=== PATIENT | female | born 1990 | race Caucasian/White ===

== ENCOUNTER 2017-09-27 05:45 | Inpatient (IN) ==
--- OUTSIDE RECORDS SUMMARY | 2017-09-27 05:56 | External Medical Summary | Continuity of Care Document ---
:1990 Author Organization [facility] Address [address] [place], [place] [id number] Phone Care Team Providers Name Role Phone Constanza Flowers MD Unavailable Unavailable Allergies, Adverse Reactions, Alerts Substance Reaction Severity Status No Known Drug Allergies Unknown Active Medications Medication Instructions Dosage Effective Dates Status Comments (start - stop) Terazol 3 0.8 % insert 1 Not Available - Active vaginal cream applicatorful by vaginal route every day at bedtime 28 mg take 1 by Oral Not Available - Active PNV that iron-800 mcg route every day insurance will tablet cover Problems Condition Effective Dates (start - stop) Clinical Status Follow-Up, Routine - Follow-Up, Routine - Previous Low Transverse - Encounter for suprvsn of normal - , third trimester 35 weeks gestation of - Irregular Menses Previous Low Transverse - Encounter for suprvsn of normal - , third trimester 32 weeks gestation of - Primary dysmenorrhea Previous Low Transverse - Encounter for suprvsn of normal - , second trimester 16 weeks gestation of - Previous Low Transverse - Encounter for suprvsn of normal - , second trimester 22 weeks gestation of - Previous Low Transverse - Encounter for suprvsn of normal - , third trimester 37 weeks gestation of - Previous Low Transverse - Encounter for suprvsn of normal - , third trimester 36 weeks gestation of - Previous Low Transverse - Pap Smear Screening, Cervix - Encounter for suprvsn of normal - , first trimester 8 weeks gestation of - Previous Low Transverse - Encounter for suprvsn of normal - , third trimester 28 weeks gestation of - Previous Low Transverse - Encounter for suprvsn of normal - , first trimester 12 weeks gestation of - Previous Low Transverse - Encounter for suprvsn of normal - , third trimester 30 weeks gestation of - Previous Low Transverse - Encounter for suprvsn of normal - , second trimester 26 weeks gestation of - Previous Low Transverse - Encounter for suprvsn of normal - , second trimester 18 weeks gestation of - Previous Low Transverse - Matern care for oth or susp poor fetl - grth, 2nd tri, unsp 18 weeks gestation of - Unspecified abdominal pain - Unspecified abdominal pain Screening Cervical Pap Smear Active Procedures Procedure Date OB Visit No Charge - 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 Results Test Name Date and Time Measure Units Reference Range Abnormal Flag Comments Panel Description: STREPTOCOCCUS, GROUP B CULTURE STREPTOCOCCUS, GROUP SEE NOTE STREPTOCOCCUS, GROUP B CULTURE B CULTURE 16:40:00 MICRO NUMBER: [id number] TEST STATUS: FINAL SPECIMEN SOURCE: VAGINAL/ANORECTAL SPECIMEN QUALITY: ADEQUATE RESULT: No group B Streptococcus isolatedREPORT COMMENT:FASTING:UNKNOWNTest performed at [facility] [id number] [place] [address]Yyaxyszv: SINDHU ORNELAS DO,MPH Advance Directives Directive Yes / No Effective Date File Name Unknown Encounters Encounter Practice Location Reason(s) Diagnoses Date Provider Care Team Description For Visit [facility] Previous Low Nov-1 Georgie In Womens Transverse 6-201 Lilli. Blanca ZENG C-SectionEncount 7 700 PO Box er for suprvsn Medical 1522, of normal [facility], , third Mikel Lopez, [id number] 120, [id number], weeks gestation [place], tel:[phone] , [place]. tel: [phone] [facility] Previous Low Nov-0 Georgie In Womens Transverse 9-201 Lilli. Blanca ZENG C-SectionEncount 7 700 PO Box er for suprvsn Medical 1522, of normal [facility], , third Mikel Lopez, [id number] 120, [id number], weeks gestation [place], tel:[phone] , [place]. tel: [phone] Lien [place] Previous Low Oct-3 Georgie In Womens Transverse 0-201 Lilli. Blanca ZENG C-SectionEncount 7 700 PO Box er for suprvsn Medical 1522, of normal [facility], , third Mikel Lopez, [id number] 120, [id number], weeks gestation [place], tel:[phone] , [place]. tel: [phone] [facility] Previous Low Oct-1 Georgie Referring In Womens Transverse 2-201 Lilli. Provider: Tarun Smith-SectionEncount 7 700 Lilli PO Box er for suprn Medical Georgie L, 1522, of normal Center [address] [place] [address], , third Mikel Lopez, [id number] 120, Center [id number], weeks gestation Mikel [place] 120, [place] of [place] RAMACHANDRAN, tel:[phone] [place], , [place]. [id number]. tel: tel: [phone] [facility] Previous Low Sep-2 Georgie In Womens Transverse 8-201 Lilli. Blanca ZENG C-SectionEncount 7 700 PO Box er for suprvsn Medical 1522, of normal [facility], , third Mikel Lopez, [id number] 120, [id number], weeks gestation [place], tel:[phone] , [place]. tel: [phone] [facility] Previous Low Sep-1 Georgie In Womens Transverse 4-201 Lilli. Blanca ZENG C-SectionEncount 7 700 PO Box er for [facility] Medical 1522, of normal [facility], , third Mikel Lopez, [email or web address] 120, [id number], weeks gestation [place], tel:[phone] , [place]. tel: [phone] [facility] Previous Low Aug-3 Georgie In Womens Transverse 1-201 Lilli. Blanca ZENG C-SectionEncount 7 700 PO Box er for [facility] 1522, of normal [facility], , Mikel Lopez, second 120, , [id number] [place], [place] weeks gestation [place], tel:[phone] , [place]. tel: [phone] [facility] Previous Low Aug-0 Georgie In Womens Transverse 3-201 Lilli. Tarun Smith-SectionEncount 7 700 PO Box er for [facility] Medical 1522, of normal [facility], , Mikel Lopez, second 120, [id number], [id number] [place], [place] weeks gestation [place], tel:+ [phone] , [place]. tel: [phone] [facility] Previous Low Angel-0 Georgie In Womens Transverse 6-201 Lilli. Blanca ZENG C-SectionEncount 7 700 PO Box er for [facility] Medical 1522, of normal [facility], , Mikel Lopez, second 120, [id number], [email or web address] [place], [place] weeks gestation [place], tel:[phone] , [place]. tel: [phone] [facility] Previous Low Angel-0 Georgie In Womens Ultrasound Transverse 6-201 Lilli. Blanca ZENG C-SectionMatern 7 700 PO Box care for oth or Medical 1522, susp poor fetl [facility], gr, 2nd tri, Mikel Lopez, [id number] weeks 120, , gestation of [place], tel:[phone] , [place]. tel: [phone] [facility] Previous Low Dawson-2 Georgie In Womens Transverse 2-201 Lilli. Health AZUCENA, C-SectionEncount 7 700 PO Box er for suprn Medical 1522, of normal [facility], , Mikel Lopez, second 120, [id number], [email or web address] [place], [place] weeks gestation [place], tel: of , [place]. tel: [phone] [facility] Previous Low May-2 Georgie In Womens Transverse 4-201 Lilli. Blanca ZENG, C-SectionEncount 7 700 PO Box er for suprn Medical 1522, of normal [facility], , first Mikel Lopez, 120, [id number], weeks gestation [place], [place], tel:[phone] , [place]. tel: [phone] [facility] Previous Low Apr-2 Georgie In Womens Transverse 6-201 Lilli. Blanca ZENG, C-SectionPap 7 700 PO Box Smear Screening, Medical 1522, [facility], for suprvsn of Mikel Lopez, normal 120, , , first [place], [place] trimester8 weeks [place], tel: gestation of , [place]. tel: [phone] [facility] Irregular Menses Apr-1 Georgie In Womens 7-201 Lilli. Blanca ZENG, 7 700 PO Box Medical 1522, [address] [place], 120, [id number], [place], tel:[phone] , [place]. tel: [phone] [facility] Primary Feb-0 Mccoy In Womens dysmenorrhea 6-201 Clau. Blanca ZENG, 7 700 PO Box Medical 1522, [address] [place], 120, [id number], [place], tel:[phone] , [place]. tel: [phone] [facility] Unspecified Feb-0 Mccoy In Womens Ultrasound abdominal pain 6-201 Clau. [facility], 7 700 PO Box Medical 1522, [address], [facility] [place], 120, [id number], [place], tel:[phone] , [place]. tel: [phone] Lien [place] Unspecified Feb-0 Mccoy In Womens abdominal pain 2-201 Clau. [facility] [place], 7 700 PO Box Medical 1522, [address] [place], [facility] [place], 120, [id number], [facility] [place], tel:[phone] , [place]. tel: [phone] Lien [place] Aug-1 Debra In Womens Follow-Up, 0-201 Jahaira. Health [place], Routine 6 700 PO Box Medical 1522, [address] [place], [facility] [place], 120, [id number], [place], tel:[phone] , [place]. tel: [phone] Lien [place] Angel-1 Georgie In Womens Follow-Up, 4-201 Lilli. Health [place], Routine 6 700 PO Box Medical 1522, [address] [place], [facility] [place], 120, [id number], [place], tel:[phone] , [place]. tel: [phone] Lien [place] March-1 Georgie Referring In Womens 8-201 Lilli. Provider: Health PA, 6 700 Lilli PO Box Medical Georgie L, 1522, [place] [address], [facility] [place], 120, [place] [id number], Tristan [facility] 120, [place], [place], tel:[phone] [place], , [place]. [id number]. tel: tel: [phone] Lien [place] Feb-1 Georgie Referring In Womens 0-201 Lilli. Provider: Health [place], 6 700 Lilli PO Box Medical Georgie L, 1522, Center [facility] Dr [place]lar[place], [facility] Medical [place], 120, [address] [id number], Tristan, [facility] 120, [place], [place], tel:[phone] [place], , [place]. [id number]. tel: tel: [phone] [facility] Screening Georgie In Womens Cervical Pap - Lilli. Health [place], Smear 6 700 PO Box Medical 1522, [address] [place], [facility] [place], 120, [id number], [place], tel:[phone] , [place]. tel: [phone] Lien [place] Georgie In Womens -201 Lilli. Health [place], 0 700 PO Box Medical 1522, [address] [place], [facility] [place], 120, [id number], [place], tel:[phone] , [place]. tel: [phone] Family History Family Member Diagnosis Age At Onset No family history of Breast Cancer Paternal Grandmother Diabetes Maternal Grandfather Hypertension Maternal Grandmother Thyroid Disorder No family history of Kidney Disease No family history of Ovarian Cancer No family history of Pulmonary Embolism Maternal Grandmother Stroke Maternal Grandmother Osteoporosis No family history of Cardiovascular Disease No family history of Venous Thrombosis Paternal Grandfather Diabetes No family history of Colon Cancer No family history of Epilepsy No family history of Lung Disease Father Diabetes Immunizations Vaccine Date Status Comments Influenza, injectable, completed Source: New Immunization Record quadrivalent, preservative free, 3 yrs or older Tdap completed Source: New Immunization Record Tdap completed Source: New Immunization Record Influenza, injectable, completed Source: New Immunization Record quadrivalent, preservative free, 3 yrs or older Payers Payer name Insurance type Covered green party ID Authorization(s) [employer] [place] Medicaid MC [id number] [place] [id number] [place] Medicaid [place] [id number] [place] Medicaid MC [id number] [facility] [place] Medicaid MC [id number] Social History Type Description Quantity Date Captured Alcohol Use Details No Caffeine Use Details Unknown Tobacco Use Status Smoking Status Former smoker Vital Signs Date / Height Weight BMI Pulse Blood Temperature Respiratory Body Head BMI Time: Rate Pressure Rate Surface Circumference percentile Area 206.90 34.9 115/65 2017 lbs 6 mm[Hg] 4:14 kg/m PM eter (2) Chief Complaint And Reason For Visit Unknown Chief Complaint And Reason For Visit Reason For Referral Reason For Referral Unknown Plan Of Care Date Type Action Status Goal Lifestyle education regarding completed diet Goal Lifestyle education regarding completed diet Appointment Hilary To BOOKED Appointment Hilary To BOOKED Future Order: Radiology Order Complete OB Ultrasound > 14 Ordered Weeks ([id number]) Future Order: Radiology Order Transvaginal Pelvic Ultrasound Ordered ([id number]) Future Order: Lab Order Pap Smear With HPV Reflex If Ordered ASCUS ([id number]) Date Type Problem Goal Intervention Status Start Date Unknown. History Of Present Illness Encounter Date Complaint History Of Present Illness This patient has no known history of present illness Functional Status Encounter Date Functional Assessment Cognitive Assessment Unknown Medications Administered Medication Instructions Dosage Effective Dates (start - stop) Status Comments Drug Treatment Unknown Instructions Date Instruction Additional Information HIV and other routine tests risk factors identified by history anticipated course of care nutrition and weight gain counseling, special diet toxoplasmosis precautions (cats / raw meat) sexual activity exercise indications for ultrasound influenza vaccine environmental / work hazards travel use of any medications (including supplements, vitamins, herbs, OTC drugs) domestic violence seat belt use childbirth classes / hospital facilities hospital registration genetic testing risks Zika virus assessment & precautions Giving encouragement to exercise Related to Body mass index 30.0-30.9 Lifestyle education regarding diet Related to Body mass index 30.0-30.9 Giving encouragement to exercise Related to Body mass index 30.0-30.9 Lifestyle education regarding diet Related to Body mass index 30.0-30.9 Giving encouragement to exercise Related to Body mass index 30.0-30.9 HIV and other routine tests risk factors identified by history anticipated course of care nutrition and weight gain counseling, special diet toxoplasmosis precautions (cats / raw meat) sexual activity exercise indications for ultrasound influenza vaccine environmental / work hazards travel tobacco (ask, advise, assess, assist and arrange) alcohol illicit / recreational drugs use of any medications (including supplements, vitamins, herbs, OTC drugs) smoking counseling domestic violence seat belt use childbirth classes / hospital facilities hospital registration genetic testing risks
--- OUTSIDE RECORDS SUMMARY | 2017-09-27 05:56 | External Medical Summary | Continuity of Care Document ---
:1990 Author Organization [facility] Address [address] [place], [place] [address] Phone Care Team Providers Name Role Phone [...] third trimester 32 weeks gestation of - Irregular Menses Primary dysmenorrhea Previous Low Transverse - Encounter [...] third trimester 35 weeks gestation of - Previous Low Transverse - Matern care for oth or susp poor fetl - grth, 2nd tri, unsp 18 weeks gestation of - Unspecified abdominal pain - Unspecified abdominal pain Screening Cervical Pap Smear Active Procedures Procedure Date Immuniz admnin, 1 vac, sngl/combo 19 Yrs + Flu Vaccine - Quadrivalent Immuniz admn, ea add vacsngl/combo TDAP VACCINE >7 IM OB Visit No Charge Results Test Name Date and Time Measure Units Reference Range Abnormal Flag Comments Unknown Advance Directives Directive Yes / No Effective Date File Name Unknown Encounters Encounter Practice Location Reason(s) Diagnoses Date Provider Care Team Description For Visit Members [facility] Previous Low Georgie In Womens Transverse 0-201 Lilli. [facility] [place], C-SectionEncount 7 700 PO Box er for suprvsn Medical 1522, of normal [place], , third Mikel Lopez, [id number] 120, [id number], weeks gestation [place], [place], tel:[phone] , [place]. tel: [phone] [facility] Previous Low Oct-1 Georgie Referring In Womens Transverse 2-201 Lilli. Provider: Blanca ZENG, Tarun-SectionEncount 7 700 Lilli PO Box er for suprn Medical Georgie L, 1522, of normal Center [address] [place] [address], , third Mikel Lopez, [email or web address] 120, Center [id number], weeks gestation Tristan Mikel 120, [place] of [place], [place], tel:[phone] [place], , [place]. [id number]. tel: tel: [phone] [facility] Previous Low Sep-2 Georgie In Womens Transverse 8-201 Lilli. Blanca ZENG C-SectionEncount 7 700 PO Box er for suprn Medical 1522, of normal [facility], , third Mikel Lopez, [id number] 120, [id number], weeks gestation [place], [place] of [place], tel:[phone] , [place]. tel: [phone] [facility] Previous Low Sep-1 Georgie In Womens Transverse 4-201 Lilli. Blanca ZENG, Tarun-SectionEncount 7 700 PO Box er for suprn Medical 1522, of normal [facility], , third Mikel Lopez, [id number] 120, [id number], weeks gestation [place], [place] of [place], tel:[phone] , [place]. tel: [phone] [facility] Previous Low Aug-3 Georgie In Womens Transverse 1-201 Lilli. Blanca ZENG, C-SectionEncount 7 700 PO Box er for suprn Medical 1522, of normal [facility], , Mikel Lopez, second 120, [id number], [email or web address] [place], [place] weeks gestation [place], tel: of [phone] , [place]. tel: [phone] [facility] Previous Low Aug-0 Georgie In Womens Transverse 3-201 Lilli. Blanca ZENG, C-SectionEncount 7 700 PO Box er for suprn Medical 1522, of [facility], , Mikel Lopez, second 120, [id number], [email or web address] [place], [place] weeks gestation [place], tel:+ [phone] , [place]. tel:[phone] [facility] Previous Low Angel-0 Georgie In Womens Transverse 6-201 Lilli. Blanca ZENG, C-SectionEncount 7 700 [facility], of [facility], , Mikel Lopez, second 120, [id number], [email or web address] [place], [place] weeks gestation [place], tel:[phone] , [place]. tel:[phone] [facility] Previous Low Angel-0 Georgie In Womens Ultrasound Transverse 6-201 Lilli. Health AZUCENA, C-SectionMatern 7 700 PO Box care for oth or Medical 1522, susp [facility] fetl [facility], 2nd tri, Mikel Lopez, [id number] weeks 120, , gestation of [place], [place], tel:[phone] , [place]. tel:[phone] [facility] Previous Low Dawson-2 Georgie In Womens Transverse 2-201 Lilli. Blanca ZENG C-SectionEncount 7 700 PO Box er for [facility] Medical 1522, of [facility], , Mikel Lopez, second 120, [id number], [id number] [place], [place] weeks gestation [place], tel:+ [phone] , [place]. tel:[phone] [facility] Previous Low May-2 Georgie In Womens Transverse 4-201 Lilli. Blanca ZENG, C-SectionEncount 7 700 [facility], of [facility], , first Mikel Lopez, [email or web address] 120, [id number], weeks gestation [place], [place] of [place], tel:[phone] , [place]. tel:[phone] [facility] Previous Low Apr-2 Georgie In Womens Transverse 6-201 Lilli. Health AZUCENA C-SectionPap 7 700 PO Box Smear Screening, Medical 1522, [facility], for supr[facility] of Mikel Lopez, normal 120, , , first [place], trimester8 weeks [place], tel:+ gestation of , [place]. tel: [phone] [facility] Irregular Menses Apr-1 Georgie In Womens 7-201 Lilli. Health [facility], 7 700 PO Box Medical 1522, [place] [address] [place], Mikel RAMACHANDRAN, 120, [id number], [place], [place], tel:[phone] , [place]. tel: [phone] [facility] Primary Feb-0 Mccoy In Womens dysmenorrhea 6-201 Clau. [facility], 7 700 PO Box Medical 1522, [place] [address] [place], Mikel RAMACHANDRAN, 120, [id number], [place], [place], tel:[phone] , [place]. tel: [phone] [facility] Unspecified Feb-0 Mccoy In Womens Ultrasound abdominal pain 6-201 Clau. Health PA, 7 700 PO Box Medical 1522, [place] [address] [place], Mikel RAMACHANDRAN, 120, , [facility] [place], tel:[phone] , [place]. tel: [phone] [facility] Unspecified Feb-0 Mccoy In Womens abdominal pain 2-201 Clau. Health PA, 7 700 PO Box Medical 1522, [place] [address] [place], Mikel RAMACHANDRAN, 120, , [place], [place], tel:[phone] , [place]. tel: [phone] [facility] Aug-1 Debra In Womens Follow-Up, 0-201 Jahaira. Health PA, Routine 6 700 PO Box Medical 1522, [place] [address] [place], Mikel RAMACHANDRAN, 120, [id number], [place], tel:[phone] , [place]. tel: [phone] [facility] Angel-1 Georgie In Womens Follow-Up, 4-201 Lilli. Health PA, Routine 6 700 PO Box Medical 1522, [place] [address] [place], [facility] [place], 120, [id number], [place], [place], tel: [phone] , [place]. tel: [phone] Lien [place] March- Georgie Referring In Womens 8-201 Lilli. Provider: Health [facility]UCENA, 6 700 Lilli PO Box Medical Georgie L, 1522, Center [facility] Dr [place], [facility] [place], 120, [place] [id number], [facility], [place], [place], tel: [phone] [place], , [place]. [id number]. tel: tel: [phone] Lien [place] Dec- Georgie Referring In Womens 0-201 Lilli. Provider: Health AZUCENA, 6 700 Lilli PO Box Medical Georgie L, 1522, Center [facility] Dr [place], [facility] [place], 120, [place] [id number], [place] [address], [place], [place], tel:[phone] [place], , [place]. [id number]. tel: tel: [phone] Lien [place] Screening Nov- Georgie In Womens Cervical Pap 7-201 Lilli. Health PA, Smear 6 700 [facility] Medical 1522, [place] [address] [place], [facility] [place], 120, [id number], [place], [place], tel:[phone] , [place]. tel: [phone] Lien [place] Dec-0 Georgie In Womens 1-201 Lilli. Health PA, 0 700 [facility] Medical 1522, [place] [address] [place], [facility] [place], 120, [id number], [place], tel: [phone] , [place]. tel: [phone] Family History Family Member Diagnosis Age At [...] [employer] [place] Medicaid MC [id number] [place] [place] Medicaid MC [id number] [employer] Medicaid MC [id number] [employer] [place] Medicaid MC [id number] [employer] [place] Medicaid MC [id number] Social History Type Description Quantity Date Captured Alcohol Use Details No Caffeine Use Details Unknown Tobacco Use Status Smoking Status Former smoker Vital Signs Date / Height Weight BMI Pulse Blood Temperature Respiratory Body Head BMI Time: Rate Pressure Rate Surface Circumference percentile Area 200.40 33.8 / lbs 6 mm[Hg] 4:48 kg/m PM eter (2) Chief Complaint And Reason For Visit Unknown Chief Complaint And Reason For Visit Reason For Referral Reason For Referral Unknown Plan Of Care Date Type Action Status Goal Lifestyle education regarding completed diet Goal Lifestyle education regarding completed diet Appointment Hilary To BOOKED Appointment Hilary To BOOKED Appointment Hilary To BOOKED Appointment Hilary To [facility] R C/S, PPTL BOOKED Future Order: Radiology Order Complete OB Ultrasound > 14 Ordered Weeks ([id number]) Future Order: Radiology Order Transvaginal Pelvic Ultrasound Ordered ([id number]) Future Order: Lab Order Pap Smear With [...]
--- OUTSIDE RECORDS SUMMARY | 2017-09-27 05:56 | External Medical Summary | Continuity of Care Document ---
:1990 Author Organization [facility] [employer] [facility] [employer] [facility] Address [address] [place], [place] [id number] Phone Care Team Providers Name Role Phone Constanza Flowers MD Unavailable Unavailable Allergies, Adverse Reactions, Alerts Substance Reaction Severity Status No Known Drug Allergies Unknown Active Medications Medication Instructions Dosage Effective Dates Status Comments (start - stop) 28 mg take 1 by Oral Not Available - Active PNV that iron-800 mcg route every day insurance will tablet cover Problems Condition Effective Dates (start - stop) Clinical Status Follow-Up, Routine - Follow-Up, Routine - Previous Low Transverse - Encounter for suprvsn of normal - , second trimester 22 weeks gestation of - Irregular Menses Primary [...] for oth or susp poor fetl - gr, 2nd tri, unsp 18 weeks gestation of - Unspecified abdominal pain - Unspecified abdominal pain Screening Cervical Pap Smear Active Procedures Procedure Date OB Visit No Charge Results Test Name Date and Time Measure Units Reference Range Abnormal Flag Comments Unknown Advance Directives Directive Yes / No Effective Date File Name Unknown Encounters Encounter Practice Location Reason(s) Diagnoses Date Provider Care Team Description For Visit Members Associates Tristan Previous Low Aug-0 Georgie In Womens Transverse 3-201 Lilli. Blanca ZENG C-SectionEncount 7 700 PO [facility], of [facility], Mikel Lopez, second 120, [id number], [email or web address] [place], [place] weeks gestation [place], tel:[phone] , [place]. tel:[phone] Associates Tristan Previous Low Angel-0 Georgie In Womens Transverse 6-201 Lilli. Blanca ZENG C-SectionEncount 7 700 PO [facility], of normal [facility], , Mikel Lopez, second 120, [id number], [email or web address] [place], [place], tel:[phone] , [place]. tel:[phone] Associates Tristan Previous Low Angel-0 Georgie In Womens Ultrasound Transverse 6-201 Lilli. Blanca EZNG C-SectionMatern 7 700 PO Box care for oth or Medical 1522, susp poor fetl [facility], [facility], 2nd tri, Mikel Lopez, unsp18 weeks 120, [id number], gestation of [place], tel:[phone] , [place]. tel:[phone] Associates Tristan Previous Low Dawson-2 Georgie In Womens Transverse 2-201 Lilli. Blanca ZENG, C-SectionEncount 7 700 PO [facility], of [facility] , Mikel Lopez, second 120, [id number], [email or web address] [place], [place], tel:+ of [phone] , [place]. tel: [phone] Associates Tristan Previous Low May-2 Georgie In Womens Transverse 4-201 Lilli. Health AZUCENA, C-SectionEncount 7 700 PO Box er for suprvsn Medical 1522, of normal [facility], , first Mikel Lopez, [email or web address] 120, [id number], weeks gestation [place], tel:[phone] , [place]. tel: [phone] Associates Tristan Previous Low Apr-2 Georgie In Womens Transverse 6-201 Lilli. Health AZUCENA, C-SectionPap 7 700 PO Box Smear Screening, Medical 1522, CervixEncounter [facility], for suprvsn of Mikel Lopez, normal 120, [id number], , first [place], trimester8 weeks [place], tel:+ gestation of [phone] , [place]. tel: [phone] Associates Tristan Irregular Menses Apr-1 Georgie In Womens 7-201 Lilli. Blanca ZENG, 7 700 PO Box Medical [address], [address] Klarissa, Mikel RAMACHANDRAN, 120, [id number], [place], [place], tel:[phone] , [place]. tel: [phone] Associates Tristan Primary Feb-0 Mccoy In Womens dysmenorrhea 6-201 Clau. Blanca ZENG, 7 700 PO Box Medical [address], [address], Ste [place], 120, [id number], [place], tel:[phone] , [place]. tel: [phone] Associates Tristan Unspecified Feb-0 Mccoy In Womens Ultrasound abdominal pain 6-201 Clau. Health [facility], 7 700 PO Box Medical 15[address], [address] [place], 120, [id number], [place], tel:[phone] , [place]. tel: [phone] Associates Tristan Unspecified Feb-0 Mccoy In Womens abdominal pain 2-201 Clau. [facility], 7 700 PO Box Medical 1522, [address], [facility] [place], 120, [id number], [place], tel:[phone] , [place]. tel: [phone] Lien [place] Aug- Debra In Womens Follow-Up, 0-201 Jahaira. Health PA, Routine 6 700 PO Box Medical 15[address], [address], [facility] [place], 120, [id number], [place], tel:[phone] , [place]. tel: [phone] Lien [place] May- Georgie In Womens Follow-Up, 4-201 Lilli. Health PA, Routine 6 700 PO Box Medical 15[address], [address], [facility] [place], 120, [id number], [place], tel:[phone] , [place]. tel: [phone] Lien [place] March- Georgie Referring In Womens 8-201 Lilli. Provider: Health [facility], 6 700 Lilli PO Box Medical Georgie L, 1522, [address], [facility] [place], 120, [place] [id number], Tristan, [facility] 120, [place], tel:+ [phone] [place], , [place]. [id number]. tel: tel: [phone] Lien [place] Dec- Georgie Referring In Womens 0-201 Lilli. Provider: Health [facility]UCENA, 6 700 Lilli PO Box Medical Georgie L, 1522, [address], [facility] [place], 120, [place] [id number], Tristan, [facility] 120, Tristan RAMACHANDRAN, tel:[phone] [place], , [place]. [id number]. tel: tel:[phone] Lien [place] Screening Nov-2 Georgie In Womens Cervical Pap 7-201 Lilli. Health PA, Smear 6 700 PO Box Medical 15[address], [address], [facility] [place], 120, [id number], [place], tel:[phone] , . tel: [phone] Lien [place] Georgie In Womens 1-201 Lilli. [facility], 0 700 PO [facility] 15[address], [address] Klarissa, [facility] [place], 120, [id number], [place], tel:[phone] , [place]. tel: [phone] Family History Family Member Diagnosis Age At [...] Father Diabetes Immunizations Vaccine Date Status Comments Tdap completed Source: New Immunization Record Influenza, injectable, completed Source: New Immunization Record quadrivalent, preservative free, 3 yrs or older Payers Payer name Insurance type Covered constitution party ID Authorization(s) [employer] [place] Medicaid MC [id number] [place] Medicaid MC [id number] [place] [place] Medicaid MC [id number] Social History Type Description Quantity Date Captured Alcohol Use Details No Caffeine Use Details Unknown Tobacco Use Status Smoking Status Former smoker Vital Signs Date / Height Weight BMI Pulse Blood Temperature Respiratory Body Head BMI Time: Rate Pressure Rate Surface Circumference percentile Area 191.50 32.3 / lbs 6 mm[Hg] 4:09 kg/m PM eter (2) 191.50 32.3 -2017 lbs 6 4:08 kg/m PM eter (2) Chief Complaint And Reason For Visit Unknown Chief Complaint And Reason For Visit Reason For Referral Reason For Referral Unknown Plan Of Care Date Type Action Status Goal Lifestyle education regarding completed diet Goal Lifestyle education regarding completed diet Appointment Hilary To BOOKED Future Order: Radiology Order Complete OB Ultrasound > 14 Ordered Weeks ([id number]) Future Order: Radiology Order Transvaginal Pelvic Ultrasound Ordered ([id number]) Future Order: Lab Order Pap Smear With [...]
--- OUTSIDE RECORDS SUMMARY | 2017-09-27 05:56 | External Medical Summary | Continuity of Care Document ---
:1989 Author Organization [facility] Address [address] [place], [place] [phone] Phone Care Team Providers Name Role Phone [...] Follow-Up, Routine - Previous Low Transverse - Matern care for oth or susp poor fetl - grth, 2nd tri, unsp 18 weeks gestation of - Irregular Menses Primary [...] first trimester 12 weeks gestation of - Screening Cervical Pap Smear Unspecified abdominal pain Unspecified abdominal pain - Previous Low Transverse - Encounter for suprvsn of normal - , second trimester 18 weeks gestation of - Active Procedures Procedure Date Ultrasound exam of preg uterus, complete Results Test Name Date and Time Measure Units Reference Range Abnormal Flag Comments Unknown Advance Directives Directive Yes / No Effective Date File Name Unknown Encounters Encounter Practice Location Reason(s) Diagnoses Date Provider Care Team Description For Visit Members Associates Tristan Previous Low Angel-0 Georgie In Womens Transverse 6-201 Lilli. Tarun Smith-SectionEncount 7 700 PO Box er for [facility] Medical 1522, of [facility] , Mikel Lopez, second 120, [id number], [email or web address] [place], [place], tel:+ of [phone] , [place]. tel: [phone] Associates Tristan Previous Low Angel-0 Georgie In Womens Ultrasound Transverse 6-201 Lilli. Tarun Smith-SectionMatern 7 700 PO [facility], [facility], 2nd tri, , Mikel RAMACHANDRAN, unsp18 weeks 120, [id number], gestation [place], tel:+ [phone] , [place]. tel:[phone] Associates Tristan Previous Low Dawson-2 Georgie In Womens Transverse 2-201 Lilli. Tarun Smith-SectionEncount 7 700 PO Box er for [facility] Medical 1522, of [facility], , Mikel Lopez, second 120, [id number], [email or web address] [place], [place], tel:+ of [phone] , [place]. tel:[phone] Associates Tristan Previous Low May-2 Georgie In Womens Transverse 4-201 Lilli. Blanca ZENG C-SectionEncount 7 700 PO Box er for [facility] Medical 1522, of [facility], , first Mikel Lopez, [email or web address] 120, [id number], weeks gestation [place], tel:[phone] , [place]. tel:[phone] Associates Tristan Previous Low Apr-2 Georgie In Womens Transverse 6-201 Lilli. Health [facility], C-SectionPap 7 700 PO Box Smear Screening, Medical 1522, [facility], for suprvsn of Mikel Lopez, normal 120, [id number], , first [place], trimester8 weeks [place], tel:+ gestation of [phone] , [place]. tel: [phone] Associates Tristan Irregular Menses Apr-1 Georgie In Womens 7-201 Lilli. Health [facility], 7 700 PO [facility] Medical [address], [address] K[place], [place]el [place], 120, [id number], [place], [place], tel:[phone] , [place]. tel: [phone] Associates Tristan Primary Feb-0 Mccoy In Womens dysmenorrhea 6-201 Clau. Health [facility], 7 700 PO [facility] 15[address], [address] [place], [place], 120, [id number], [place], tel:[phone] , [place]. tel: [phone] Associates Tristan Unspecified Feb-0 Mccoy In Womens Ultrasound abdominal pain 6-201 Clau. Health [facility], 7 700 PO [facility] 15[address], [address] [place], [place], 120, [id number], [place], tel:[phone] , [place]. tel: [phone] Associates Tristan Unspecified Feb-0 Mccoy In Womens abdominal pain 2-201 Clau. Health [facility], 7 700 PO [facility] Medical [address], [address] [place], [place], 120, [id number], [place], tel:[phone] , [place]. tel: [phone] Associates Tristan Aug- Debra In Womens Follow-Up, 0-201 Jahaira. Health [facility], Routine 6 700 PO Box Medical [address], [address] [place], [place], 120, [id number], [place], tel:[phone] , [place]. tel: [phone] Associates Tristan May-1 Georgie In Womens Follow-Up, 4-201 Lilli. Health [facility], Routine 6 700 PO Box Medical 15[address], [address] [place], [facility] [place], 120, [id number], [place], tel: [phone] , [place]. tel: [phone] Lien [place] March-1 Georgie Referring In Womens 8-201 Lilli. Provider: Blanca ZENG, 6 700 Lilli PO Box Medical Georgie L, 1522, [address], [facility] [place], 120, [place] [id number], Tristan, [facility] 120, [place], Tristan, tel:[phone] [place], , . [id number]. tel: tel: [phone] Lien [place] Fe-1 Georgie Referring In Womens 0-201 Lilli. Provider: Blanca ZENG, 6 700 Lilli PO Box Medical Georgie L, 1522, Center [facility] Dr Klarissa, [facility] [place], 120, [place] [id number], [facility], [place], Tristan, tel:[phone] [place], , . [id number]. tel: tel: [phone] Lien [place] Screening Nov-2 Georgie In Womens Cervical Pap 7-201 Lilli. Health [facility], Smear 6 700 [facility] 1522, [address], [facility] [place], 120, [id number], [facility] [place], tel: [phone] , [place]. tel: [phone] Lien [place] Feb-0 Georgie In Womens 1-201 Lilli. Blanca ZENG, 0 700 [facility] Medical [address], [address] [place], [facility] [place], 120, [id number], [place], tel:[phone] , [place]. tel: [phone] Family History Family Member Diagnosis Age At [...] older Payers Payer name Insurance type Covered republican ID Authorization(s) [employer] [place] Medicaid MC [id number] [employer] [place] Medicaid MC [id number] [employer] [place] - Medicaid MC [id number] Social History Type Description Quantity Date Captured Unknown Vital Signs Date / Height Weight BMI Pulse Blood Temperature Respiratory Body Head BMI Time: Rate Pressure Rate Surface Circumference percentile Area Unknown Chief Complaint And Reason For Visit Unknown Chief Complaint And Reason For Visit Reason For Referral Reason For Referral Unknown Plan Of Care Date Type Action Status Goal Lifestyle education regarding completed diet Goal Lifestyle education regarding completed diet Appointment Hilary To BOOKED Future Order: Radiology Order Complete OB Ultrasound > 14 Ordered Weeks ([id number]) Future Order: Lab Order Pap Smear With HPV Reflex If Ordered ASCUS ([id number]) Future Order: Radiology Order Transvaginal Pelvic Ultrasound Ordered ([id number]) Date Type Problem Goal Intervention Status Start [...]
--- OUTSIDE RECORDS SUMMARY | 2017-09-27 05:57 | External Medical Summary | Continuity of Care Document ---
:1990 Author Organization [facility] Allergies Active Description Code Type Severity Reaction Onset Reported/ Identified Relationship Clinical to Patient Status Yes No Known 75877 3 N/A N/A Drug 0 Allergies Medications Medication Packaging Start Date Stop Date Route Dosage Sig Tablet 01/08/2016 7 take 1 by Oral VITAMINS route every day Tablet 01/07/2017 LO LOESTRIN 7 take 1 tablet FE by oral route every day Tablet 02/16/2017 8 take 1 by Oral VITAMINS route every day Tube 08/12/2017 TERAZOL 3 7 insert 1 applicatorful by vaginal route every day at bedtime Problems Date Dx Coded Attending Type Code Diagnosis Diagnosed By 12/11/2015 W 656.63 EXCESS FET GRTH-ANTEPART 12/11/2015 W V22.0 SUPERVIS NORMAL 1ST PREG 12/11/2015 Lilli Jacques O34.21 Maternal care for L scar from previous delivery 12/11/2015 Lilli Jacques Z34.82 Encounter for L suprvsn of normal , second trimester 12/11/2015 Lilli Jacques Z3A.18 18 weeks gestation L of 01/22/2016 Lilli Jacques O69.89x0 Labor and delivery L complicated by oth cord comp, unsp 01/22/2016 Lilli Jacques Z3A.24 24 weeks gestation L of 02/19/2016 Lilli Jacques O34.21 Maternal care for L scar from previous delivery 02/19/2016 Lilli Jacques O69.89x0 Labor and delivery L complicated by oth cord comp, unsp 02/19/2016 Lilli Jacques Z3A.28 28 weeks gestation L of 03/18/2016 Lilli Jacques O34.21 Maternal care for L scar from previous delivery 03/18/2016 Lilli Jacques O69.89x0 Labor and delivery L complicated by oth cord comp, [facility] 03/18/2016 Henry Jacqueskristen Bey Z3A.32 32 weeks gestation L of 04/15/2016 Georgie Lilli Bey O34.21 Maternal care for L scar from previous delivery 04/15/2016 Henry Jacqueskristen Bey O69.89x0 Labor and delivery L complicated by oth cord comp, [facility] 04/15/2016 Chloé Jacquescarlos Bey Z3A.36 36 weeks gestation L of 04/22/2016 Chloé Jacquescarlos Bey O36.5930 Matern care for L oth or susp poor fetl grth, third tri, [facility] 04/22/2016 Chloé Jacquescarlos Bey O69.89x0 Labor and delivery L complicated by oth cord comp, [facility] 04/22/2016 Chloé Jacquescarlos Bey Z3A.37 37 weeks gestation L of 04/27/2016 GeorgieLilli kelly O36.5930 Matern care for L oth or susp poor fetl grth, third tri, [facility] 04/27/2016 Henry Jacqueskristne Bey O69.89x0 Labor and delivery L complicated by oth cord comp, [facility] 04/27/2016 Georgie Lilli Bey Z3A.37 37 weeks gestation L of 12/07/2016 Clau Mccoy W R10.9 Unspecified S abdominal pain 05/06/2017 Lilli Jacques O34.211 Previous Low L Transverse 05/06/2017 Lilli Jacques O36.5920 Matern care for L oth or susp poor fetl grth, 2nd tri, [facility] 05/06/2017 GeorgieLilli kelly Z3A.18 18 weeks gestation L of Procedures Code Description Performed By Performed On OB 12/02/2009 39880 Visit No Charge 12/02/2009 40351 Vaccine Administration, pandemic formulation 12/02/2009 70763 Influenza virus vaccine, pandemic formulation 12/02/2009 82876 Specimen handling/transport 12/11/2015 37136 Ultrasnd exam of preg uterus, compl 01/22/2016 56694 Ultrasnd preg uterus, flwup/repeat 02/19/2016 67320 Ultrasnd preg uterus, flwup/repeat 03/18/2016 99965 Ultrasnd preg uterus, flwup/repeat 04/15/2016 81554 Ultrasnd preg uterus, flwup/repeat 04/22/2016 21362 Ultrasnd exam, preg uterus, limited 04/22/2016 01887 UMBILICAL ARTERY ECHO 04/27/2016 84723 biophys prfl w/o nstress test 04/27/2016 28272 UMBILICAL ARTERY ECHO 12/07/2016 60580 Ultrasound, transvaginal 05/06/2017 36745 Ultrasnd exam of preg uterus, compl 08/12/2017 09346 Immuniz admnin, 1 vac, sngl/combo 08/12/2017 10851 Immuniz admn, ea add vacsngl/combo Flu 08/12/2017 97921 Vaccine - Quadrivalent TDAP 08/12/2017 48555 VACCINE >7 IM Results Encounters ACCT No. Visit Discharge Status Pt. Type Provider Facility Loc./Unit Complaint Date/Time [id number] 09/22/2017 09/22/2017 CLS Outpatient Georgie, 09:00:00 23:59:59 Lilli L [id number] 09/16/2017 09/16/2017 CLS Outpatient Georgie, 16:15:00 23:59:59 Lilli L [id number] 09/09/2017 09/09/2017 CLS Outpatient Georgie, 16:15:00 23:59:59 Lilli L [id number] 08/30/2017 08/30/2017 CLS Outpatient Georgie, 15:45:00 23:59:59 Lilli L [id number] 08/12/2017 08/12/2017 CLS Outpatient Georgie, 16:15:00 23:59:59 Lilli L [id number] 07/29/2017 07/29/2017 CLS Outpatient Georgie, 16:15:00 23:59:59 Lilli L [id number] 07/15/2017 07/15/2017 CLS Outpatient Georgie, 14:25:00 23:59:59 Lilli L [id number] 07/01/2017 07/01/2017 CLS Outpatient Georgie, 15:30:00 23:59:59 Lilli L [id number] 06/03/2017 06/03/2017 CLS Outpatient Georgie, 15:40:00 23:59:59 Lilli L [id number] 05/06/2017 05/06/2017 CLS Outpatient Georgie, 15:25:00 23:59:59 Lilli L [id number] 05/06/2017 05/06/2017 CLS Outpatient Georgie, 15:15:00 23:59:59 Lilli L [id number] 04/22/2017 04/22/2017 CLS Outpatient Georgie, 15:55:00 23:59:59 Lilli L [id number] 03/24/2017 03/24/2017 CLS Outpatient Georgie, 15:50:00 23:59:59 Lilli L [id number] 02/24/2017 02/24/2017 CLS Outpatient Georgie, 15:45:00 23:59:59 Lilli L [id number] 02/15/2017 02/15/2017 CLS Outpatient Georgie, 11:20:00 23:59:59 Lilli L [id number] 01/07/2017 01/07/2017 CLS Outpatient Georgie, 16:36:00 23:59:59 Lilli L [id number] 12/07/2016 12/07/2016 CLS Outpatient Mccoy, 10:15:00 23:59:59 Clau S [id number] 12/07/2016 12/07/2016 CLS Outpatient Mccoy, 09:45:00 23:59:59 Clau S [id number] 12/03/2016 12/03/2016 CLS Outpatient Mccoy, 10:15:00 23:59:59 Clau S [id number] 06/10/2016 06/10/2016 CLS Outpatient Debra, 16:15:00 23:59:59 Jahaira [id number] 05/14/2016 05/14/2016 CLS Outpatient Georgie, 15:30:00 23:59:59 Lilli L [id number] 05/05/2016 05/05/2016 CLS Outpatient Georgie, 10:58:00 23:59:59 Lilli L [id number] 04/30/2016 04/30/2016 CLS Outpatient Georgie, 14:30:00 23:59:59 Lilli L [id number] 04/27/2016 04/27/2016 CLS Outpatient Georgie, 15:00:00 23:59:59 Lilli L [id number] 04/27/2016 04/27/2016 CLS Outpatient Georgie, 14:15:00 23:59:59 Lilli L [id number] 04/22/2016 04/22/2016 CLS Outpatient Georgie, 15:40:00 23:59:59 Lilli L [id number] 04/20/2016 04/20/2016 CLS Outpatient Georgie, 10:20:00 23:59:59 Lilli L [id number] 04/20/2016 04/20/2016 CLS Outpatient Georgie, 09:45:00 23:59:59 Lilli L [id number] 04/15/2016 04/15/2016 CLS Outpatient Georgie, 10:30:00 23:59:59 Lilli L [id number] 04/15/2016 04/15/2016 CLS Outpatient Georgie, 09:45:00 23:59:59 Lilli L [id number] 04/03/2016 04/03/2016 CLS Outpatient Georgie, 14:00:00 23:59:59 Lilli L [id number] 03/18/2016 03/18/2016 CLS Outpatient Georgie, 10:10:00 23:59:59 Lilli L [id number] 03/18/2016 03/18/2016 CLS Outpatient Georgie, 09:45:00 23:59:59 Lilli L [id number] 03/04/2016 03/04/2016 CLS Outpatient Georgie, 14:00:00 23:59:59 Lilli L [id number] 02/19/2016 02/19/2016 CLS Outpatient Georgie, 10:15:00 23:59:59 Lilli L [id number] 02/19/2016 02/19/2016 CLS Outpatient Georgie, 09:45:00 23:59:59 Lilli L [id number] 01/22/2016 01/22/2016 CLS Outpatient Georgie, 10:15:00 23:59:59 Lilli L [id number] 01/22/2016 01/22/2016 CLS Outpatient Georgie, 09:45:00 23:59:59 Lilli L [id number] 01/08/2016 01/08/2016 CLS Outpatient Georgie, 11:30:00 23:59:59 Lilli L [id number] 12/19/2015 12/19/2015 CLS Outpatient Georgie, 14:13:00 23:59:59 Lilli L [id number] 12/11/2015 12/11/2015 CLS Outpatient Georgie, 13:55:00 23:59:59 Lilli L [id number] 12/11/2015 12/11/2015 CLS Outpatient Georgie, 13:15:00 23:59:59 Lilli L [id number] 11/27/2015 11/27/2015 CLS Outpatient Georgie, 10:45:00 23:59:59 Lilli L [id number] 08/30/2015 08/30/2015 CLS Outpatient Georgie, 14:01:00 23:59:59 Lilli L [id number] 12/02/2009 Document 08:45:00 Registration
--- OUTSIDE RECORDS SUMMARY | 2017-09-27 05:57 | External Medical Summary | Continuity of Care Document ---
:1990 Author Organization [facility] [employer] [facility] Address [address] [place], [place] [phone] Phone Care Team Providers Name Role Phone [...] third trimester 30 weeks gestation of - Irregular Menses Previous [...] Provider Care Team Description For Visit Members Lien [place] Previous Low Georgie Referring In Womens Transverse 2-201 Lilli. Provider: Blanca ZENG C-SectionEncount 7 700 Lilli PO Box er for suprn Medical Georgie L, 1522, of normal [address], , third Mikel Lopez, [id number] 120, [place] [id number], weeks gestation [place] [facility] 120, [place] of [place] RAMACHANDRAN, tel:[phone] [place], [phone] , [place]. [id number]. tel: tel:[phone] Associates [place] Previous Low Jul-2 Georgie In Womens Transverse 8-201 Lilli. Blanca ZENG C-SectionEncount 7 700 PO Box er for suprn Medical 1522, of normal [facility], , third Mikel Lopez, [email or web address] 120, [id number], weeks gestation [place], [place], tel:[phone] , [place]. tel:[phone] Associates [place] Previous Low Sep-1 Georgie In Womens Transverse 4-201 Lilli. Health [facility]UCENA, C-SectionEncount 7 700 PO Box er for suprn Medical 1522, of [facility], , third Mikel Lopez, 120, [id number], weeks gestation [place], [place], tel:[phone] , [place]. tel:[phone] Associates [place] Previous Low Aug-3 Georgie In Womens Transverse 1-201 Lilli. Health AZUCENA, C-SectionEncount 7 700 PO Box [facility] Medical 1522, of [facility], Mikel Lopez, second 120, [id number], [email or web address] [place], [place] weeks gestation [place], tel:+ [phone] , [place]. tel:[phone] Associates [place] Previous Low Aug-0 Georgie In Womens Transverse 3-201 Lilli. Health AZUCENA C-SectionEncount 7 700 PO Box [facility] for [facility] Medical 1522, of [facility], , Mikel Lopez, second 120, [id number], [email or web address] [place], [place] weeks gestation [place], tel:[phone] , [place]. tel: [phone] Associates [place] Previous Low Angel-0 Georgie In Womens Transverse 6-201 Lilli. Health PA, C-SectionEncount 7 700 PO Box er for [facility] Medical 1522, of [facility], , Mikel Lopez, second 120, [id number], [place], [place] weeks gestation [place], tel:[phone] , [place]. tel:[phone] Associates [place] Previous Low Angel-0 Georgie In Womens Ultrasound Transverse 6-201 Lilli. Health PA, C-SectionMatern 7 700 PO Box care for oth or Medical 1522, susp poor fetl [facility], grth, 2nd tri, Mikel Lopez, unsp18 weeks 120, [id number], gestation of [place], tel:[phone] , [place]. tel: [phone] Associates [place] Previous Low Dawson-2 Georgie In Womens Transverse 2-201 Lilli. Health [place], C-SectionEncount 7 700 PO Box er for suprvsn Medical 1522, of normal [facility], , Mikel Lopez, second 120, [id number], [email or web address] [place], [place] weeks gestation [place], tel:[phone] , [place]. tel: [phone] Associates [place] Previous Low May-2 Georgie In Womens Transverse 4-201 Lilli. Health PA, C-SectionEncount 7 700 PO Box er for suprvsn Medical 1522, of normal [facility], , first Mikel Lopez, [email or web address] 120, [id number], weeks gestation [place], [place] of [place], tel:[phone] , [place]. tel: [phone] Associates [place] Previous Low Apr-2 Georgie In Womens Transverse 6-201 Lilli. Health [place], C-SectionPap 7 700 PO Box Smear Screening, Medical 1522, [facility], for suprvsn of Mikel Lopez, normal 120, [id number], , first [place], trimester8 weeks [place], tel:[phone] gestation of , [place]. tel: [phone] Associates [place] Irregular Menses Apr-1 Georgie In Womens 7-201 Lilli. Health PA, 7 700 PO Box Medical 1522, [place] [address] [place], 120, [id number], [place], [place], tel:[phone] , [place]. tel: [phone] [facility] [place] Primary Feb-0 Mccoy In Womens dysmenorrhea 6-201 Clau. Health PA, 7 700 PO Box Medical 1522, [place] [address] [place], 120, [id number], [place], tel:[phone] , [place]. tel: [phone] Associates [place] Unspecified Feb-0 Mccoy In Womens Ultrasound abdominal pain 6-201 Clau. Health PA, 7 700 PO Box Medical 1522, [place] Dr Klar[place], [facility] [place], 120, [id number], [place], tel:[phone] , [place]. tel: [phone] Associates [place] Unspecified Feb-0 Mccoy In Womens abdominal pain 2-201 Clau. Health PA, 7 700 PO Box Medical 1522, [place] Dr Klarissa, [facility] [place], 120, [id number], [place], [place], tel:[phone] , [place]. tel: [phone] Lien [place] Aug-1 Debra In Womens Follow-Up, 0-201 Jahaira. Health PA, Routine 6 700 PO Box Medical 1522, [address], [facility] [place], 120, [id number], [facility] [place], tel: [phone] , [place]. tel: [phone] Lien [place] Angel-1 Georgie In Womens Follow-Up, 4-201 Lilli. Health PA, Routine 6 700 PO Box Medical 1522, [address], [facility] [place], 120, [id number], [place], tel:[phone] , [place]. tel: [phone] Lien [place] March-1 Georgie Referring In Womens 8-201 Lilli. Provider: Health [place], 6 700 Lilli PO Box Medical Georgie L, 1522, [place] [address], [facility] [place], 120, [place] [id number], [place] [facility] 120, [place], [place], tel:[phone] [place], , [place]. [id number]. tel: tel: [phone] Associates [place] Feb-1 Georgie Referring In Womens 0-201 Lilli. Provider: Health [place]UCENA, 6 700 Lilli PO Box Medical Georgie L, 1522, Center [facility] Dr [place]lar[place], [facility] [place], 120, [place] [address] [id number], [facility] 120, [place], [place], tel: [phone] [place], , [place]. [id number]. tel: tel: [phone] Associates [place] Screening Gene- Georgie In Womens Cervical Pap 7-201 Lilli. Health PA, Smear 6 700 PO Box Medical 1522, [place] Dr [place], [facility], 120, [id number], [place], tel: [phone] , [place]. tel: [phone] Lien [place] Fe-0 Georgie In Womens 1-201 Lilli. Health PA, 0 700 PO Box Medical 1522, [place] Dr Klarissa, [facility], 120, [id number], [facility] [place], tel: [phone] , [place]. tel: [phone] Family History Family Member Diagnosis Age At [...] older Payers Payer name Insurance type Covered libertarian ID Authorization(s) [place] Medicaid MC [id number] [facility] [place] Medicaid MC [id number] [facility] [place] Medicaid MC [id number] [facility] [place] Medicaid MC [id number] [place] Medicaid MC [id number] Social History Type Description Quantity Date Captured Alcohol Use Details No Caffeine Use Details Unknown Tobacco Use Status Smoking Status Former smoker Vital Signs Date / Height Weight BMI Pulse Blood Temperature Respiratory Body Head BMI Time: Rate Pressure Rate Surface Circumference percentile Area 33.2 -2016 7 4:34 kg/m PM eter (2) 197.00 33.2 117/67 2017 lbs 9 mm[Hg] 4:39 kg/m PM eter (2) Chief Complaint And [...] Appointment Hilary To BOOKED Appointment Hilary To [facility] R C/S, PPTL BOOKED Future Order: Radiology Order Complete OB Ultrasound > 14 Ordered Weeks ([id number]) Future Order: Radiology Order Transvaginal Pelvic Ultrasound Ordered ([id number]) Future Order: Lab Order Pap Smear With [...]
--- OUTSIDE RECORDS SUMMARY | 2017-09-27 05:57 | External Medical Summary | Continuity of Care Document ---
:1990 Author Organization [facility] [facility] [employer] [facility] Address [address] [place], [place] [phone] Phone Care Team Providers Name Role Phone [...] second trimester 26 weeks gestation of - Irregular Menses Primary dysmenorrhea Previous Low Transverse - Encounter for suprvsn of normal - , second trimester 16 weeks gestation of - Previous Low Transverse - 22 weeks gestation of - Encounter for suprvsn of normal - , second trimester Previous Low Transverse - Pap Smear Screening, Cervix - Encounter for suprvsn of normal - , first trimester 8 weeks gestation of - Screening Cervical Pap Smear Unspecified abdominal pain Unspecified abdominal pain - Previous Low Transverse - 12 weeks gestation of - Encounter for suprvsn of normal - , first trimester Previous Low Transverse - Matern care for oth or susp poor fetl - grth, 2nd tri, unsp 18 weeks gestation of - Previous Low Transverse - 18 weeks gestation of - Encounter for suprvsn of normal - , second trimester Previous Low Transverse - 28 weeks gestation of - Encounter for suprvsn of normal - , third trimester Active Procedures Procedure Date OB Visit No Charge Results Test Name Date and Time Measure Units Reference Range Abnormal Flag Comments Panel Description: Glucose [Mass/volume] in Serum or Plasma --1 hour post 50 g glucose PO GLUCOSE, GESTATIONAL 71 mg/dL <140 N Test performed at [employer] SCREEN (50G)-140 16:37:00 DIAGNOSTICS [id number] [place] [address]Smkrvdpi: SINDHU ORNELAS DO,MPH Panel Description: HEMOGLOBIN + HEMATOCRIT HEMOGLOBIN 16:37:00 12.8 g/dL 11.7-15.5 N HEMATOCRIT 16:37:00 36.7 % 35.0-45.0 N REPORT COMMENT:FASTING :NOTest performed at [employer] [id number] [place], [place] [address]Director: SINDHU ORNELAS DO,MPH Advance Directives Directive Yes / No Effective Date File Name Unknown Encounters Encounter Practice Location Reason(s) Diagnoses Date Provider Care Team Description For Visit Members Lien [place] Previous Low Jul-1 Georgie In Womens Transverse 4-201 Lilli. Health PA, [id number] weeks 7 700 PO Box gestation of Medical 1522, [facility] lisandra Cyr for suprvsn of Mikel Lopez, normal , 120, [id number], third trimester [place], tel:[phone] , [place]. tel: [phone] Lien [place] Previous Low Jun-3 Georgie In Womens Transverse 1-201 Lilli. Health PA, C-SectionEncounte 7 700 PO Box r for suprvsn of Medical 1522, normal , [facility], [facility] Mikel Lopez, weeks 120, [id number], gestation of [place], tel:[phone] , [place]. tel: [phone] Associates [place] Previous Low Aug-0 Georgie In Womens Transverse 3-201 Lilli. Blanca ZENG, [id number] weeks 7 700 PO Box gestation of Medical 1522, [facility], r for suprvsn of Mikel Lopez, normal , 120, [id number], second trimester [place], [place], tel:[phone] , [place]. tel: [phone] Associates [place] Previous Low Angel-0 Georgie In Womens Transverse 6-201 Lilli. Blanca ZENG, [id number] weeks 7 700 PO Box gestation [facility] Medical 1522, [facility] for supr[facility]n of Mikel Lopez, normal , 120, [id number], second trimester [place], [place], tel:[phone] , [place]. tel: [phone] Associates [place] Previous Low Angel-0 Georgie In Womens Ultrasound Transverse 6-201 Lilli. Blanca ZENG, C-SectionMatern 7 700 PO Box care for oth or Medical 1522, susp poor fetl [facility], [facility], 2nd tri, Mikel Lopez, unsp18 weeks 120, [id number], gestation of [place], [place], tel:[phone] , [place]. tel: [phone] Associates [place] Previous Low Dawson-2 Georgie In Womens Transverse 2-201 Lilli. Blanca ZENG, C-SectionEncounte 7 700 PO Box r for suprvsn of Medical 1522, normal , [facility], [facility] Mikel Lopez, [id number] weeks 120, [id number], gestation of [place], tel:[phone] , [place]. tel: [phone] Associates [place] Previous Low May-2 Georgie In Womens Transverse 4-201 Lilli. Health [facility], C-Shdbwnp26 weeks 7 700 PO Box gestation of Medical 1522, [facility], r for suprvsn of Mikel Lopez, normal , 120, [id number], first trimester [place], [place], tel:[phone] , [place]. tel: [phone] Associates [place] Previous Low Apr-2 Georgie In Womens Transverse 6-201 Lilli. Health [facility], C-SectionPap 7 700 PO Box Smear Screening, Medical 1522, [facility], for suprvsn of Mikel oLpez, normal , 120, [id number], first trimester8 [place], [place] weeks gestation [place], tel:+ of [phone] , [place]. tel: [phone] Associates [place] Irregular Menses Apr-1 Georgie In Womens 7-201 Lilli. Health [place], 7 700 PO Box Medical 1522, [place] [address] [place], 120, [id number], [place], [place], tel:[phone] , [place]. tel: [phone] Associates [place] Primary Feb-0 Mccoy In Womens dysmenorrhea 6-201 Clau. Health [place], 7 700 PO Box Medical 1522, [place] [address] [place], 120, [id number], [place], [place], tel:[phone] , [place]. tel: [phone] Associates [place] Unspecified Feb-0 Mccoy In Womens Ultrasound abdominal pain 6-201 Clau. Health [place], 7 700 PO Box Medical 1522, [place] [address] [place], 120, [id number], [place], [place], tel:[phone] , [place]. tel: [phone] Associates [place] Unspecified Feb-0 Mccoy In Womens abdominal pain 2-201 Clau. Health [place], 7 700 PO Box Medical 1522, [place] [address] [place], 120, [id number], [place], [place], tel:[phone] , [place]. tel: [phone] Lien [place] Jun- Debra In Womens Follow-Up, 0-201 Jahaira. Health PA, Routine 6 700 PO Box Medical 1522, [place] [address] [place], [facility] [place], 120, [id number], [place], [place], tel:[phone] , [place]. tel: [phone] Lien [place] May-1 Georgie In Womens Follow-Up, 4-201 Lilli. Health PA, Routine 6 700 PO Box Medical 1522, [address], [facility] [place], 120, [id number], [place], [place], tel:[phone] , [place]. tel: [phone] Lien [place] March- Georgie Referring In Womens 8-201 Lilli. Provider: Health [place], 6 700 Lilli PO Box Medical Georgie L, 1522, Center [address], [facility] [place], 120, [place] [id number], [place] [facility] 120, [place], [place], tel:+ [phone] [place], , [place]. [id number]. tel: tel: [phone] Lien [place] Dec- Georgie Referring In Womens 0-201 Lilli. Provider: Health [facility]CE[place], 6 700 Lilli PO Box Medical Georgie L, 1522, Center [address], [facility] [place], 120, [place] [id number], [place], [facility] 120, [place], [place], tel:[phone] [place], , [place]. [id number]. tel: tel: [phone] Lien [place] Screening Nov-2 Georgie In Womens Cervical Pap 7-201 Lilli. Health PA, Smear 6 700 PO Box Medical 1522, [place] [address] [place], [facility] [place], 120, [id number], [place], tel:[phone] , [place]. tel: [phone] Lien [place] Feb-0 Georgie In Womens 1-201 [place]. Count includes the [facility], 0 700 PO [facility] 1522, [place] [address] [place], [facility], 120, [id number], [place], tel:[phone] , [place]. tel: [phone] Family History Family Member Diagnosis Age At [...] [place] - Medicaid MC [id number] [place] - Medicaid MC [id number] [place] - Medicaid MC [id number] Social History Type Description Quantity Date Captured Alcohol Use Details No Caffeine Use Details Unknown Tobacco Use Status Smoking Status Former smoker Vital Signs Date / Height Weight BMI Pulse Blood Temperature Respiratory Body Head BMI Time: Rate Pressure Rate Surface Circumference percentile Area 194.50 32.8 122/82 2017 lbs 7 mm[Hg] 3:38 kg/m PM eter (2) 6 3:34 kg/m PM eter (2) Chief Complaint And [...] Appointment Hilary To BOOKED Appointment Hilary To [facility] R C/S, PPTL BOOKED Future Order: Lab Order Pap Smear With HPV Reflex If Ordered ASCUS ([id number]) Future Order: Radiology Order Transvaginal Pelvic Ultrasound Ordered ([id number]) Future Order: Radiology Order Complete OB Ultrasound > 14 Ordered Weeks ([id number]) Date Type Problem Goal Intervention Status Start [...]
--- OUTSIDE RECORDS SUMMARY | 2017-09-27 05:57 | External Medical Summary | Continuity of Care Document ---
:1990 Author Organization [facility] [employer] [facility] Address [address] [place], [place] [phone] Phone Care Team Providers Name Role Phone [...] third trimester 28 weeks gestation of - Irregular Menses Primary [...] For Visit Members Associates [place] Previous Low Sep-2 Georgie In Womens Transverse 8-201 Lilli. Health [facility], C-SectionEncount 7 700 PO Box er for [facility] Medical 1522, of [facility] , third Mikel Lopez, 120, [id number], weeks gestation [place], of [place], tel:[phone] , [place]. tel:[phone] Associates [place] Previous Low Sep-1 Georgie In Womens Transverse 4-201 Lilli. Health [facility], C-SectionEncount 7 700 PO Box [facility] for [facility] 1522, of [facility], , third Mikel Lopez, [email or web address] 120, [id number], weeks gestation [place], of [place], tel:[phone] , [place]. tel:[phone] Associates [place] Previous Low Aug-3 Georgie In Womens Transverse 1-201 Lilli. Health [facility], C-SectionEncount 7 700 PO Box er for [facility] 1522, of [facility] , Mikel Lopez, second 120, [id number], [email or web address] [place], [place] weeks gestation [place], tel:+ [phone] , [place]. tel:[phone] Associates [place] Previous Low Aug-0 Georgie In Womens Transverse 3-201 Lilli. Health [facility], C-SectionEncount 7 700 PO Box er for [facility] 1522, of normal [facility], , Mikel Lopez, second 120, [id number], [email or web address] [place], [place] weeks gestation [place], tel:[phone] 196790 , [place]. tel:[phone] Associates [place] Previous Low Angel-0 Georgie In Womens Transverse 6-201 Lilli. Blanca ZENG C-SectionEncount 7 700 PO Box er for [facility] Medical 1522, of [facility] , Mikel Lopez, second 120, [id number], [email or web address] [place], [place] weeks gestation [place], tel:+ [phone] [address] , [place]. tel: [phone] Associates [place] Previous Low Angel-0 Georgie In Womens Ultrasound Transverse 6-201 Lilli. Blanca ZENG, C-SectionMatern 7 700 PO Box care for oth or Medical 1522, susp poor fetl [facility], 2nd tri, Mikel Lopez, unsp18 weeks 120, [id number], gestation of [place], [place], tel:[phone] , [place]. tel: [phone] Associates [place] Previous Low Dawson-2 Georgie In Womens Transverse 2-201 Lilli. Blanca ZENG C-SectionEncount 7 700 PO Box er for [facility] Medical 1522, of normal [facility], , Mikel Lopez, second 120, [id number], [id number] [place], [place] weeks gestation [place], tel:[phone] 1967[address] , [place]. tel:[phone] Associates [place] Previous Low May-2 Georgie In Womens Transverse 4-201 Lilli. Blanca ZENG C-SectionEncount 7 700 PO Box er for [facility] Medical 1522, of [facility] , first Mikel Lopez, [email or web address] 120, [id number], weeks gestation [place], [place] of [place], tel:[phone] , [place]. tel: [phone] Associates [place] Previous Low Apr-2 Georgie In Womens Transverse 6-201 Lilli. Health [facility], C-SectionPap 7 700 PO Box Smear Screening, Medical 1522, [facility], for suprvsn of Mikel Lopez, normal 120, , , first [place], trimester8 weeks [place], tel:[phone] , [place]. tel: [phone] Associates [place] Irregular Menses Apr-1 Georgie In Womens 7-201 Lilli. Health [place], 7 700 PO Box Medical 1522, [place] [address] [place], 120, [id number], [place], [place], tel:[phone] , [place]. tel: [phone] Associates [place] Primary Feb-0 Mccoy In Womens dysmenorrhea 6-201 Clau. Health [facility], 7 700 PO Box Medical 1522, [place] [address] [place], 120, [id number], [place], [place], tel:[phone] , [place]. tel: [phone] Associates [place] Unspecified Feb-0 Mccoy In Womens Ultrasound abdominal pain 6-201 Clau. Health [place], 7 700 PO Box Medical 1522, [place] [address] [place], 120, [id number], [place], [place], tel:[phone] , [place]. tel: [phone] Associates [place] Unspecified Feb-0 Mccoy In Womens abdominal pain 2-201 Clau. Health [place], 7 700 PO Box Medical 1522, [place] [address] [place], 120, [id number], [place], [place], tel:[phone] , [place]. tel: [phone] [facility] [place] Aug- Debra In Womens Follow-Up, 0-201 Jahaira. Health PA, Routine 6 700 PO Box Medical 1522, [place] [address] [place], [place], 120, [id number], [place], [place], tel:[phone] , [place]. tel: [phone] Lien [place] Angel-1 Georgie In Womens Follow-Up, 4-201 Lilli. Health PA, Routine 6 700 PO Box Medical 1522, [place] [address] [place], [place], 120, [id number], [place], [place], tel:[phone] , [place]. tel: [phone] Lien [place] March-1 Georgie Referring In Womens 8-201 Lilli. Provider: Health PA, 6 700 Lilli PO Box Medical Georgie L, 1522, [facility] Dr Klar[place], [facility] [place], 120, [place] [id number], [place], [place] [address], [place], [place], tel:+ [phone] [place], , [place]. [id number]. tel: tel: [phone] Lien [place] Fe-1 Georgie Referring In Womens 0-201 Lilli. Provider: Health PA, 6 700 Lilli PO Box Medical Georgie L, 1522, Center [address], [facility] [place], 120, [place] [id number], [place] [address], [place], [place], tel:+ [phone] [place], , [place]. [id number]. tel: tel: [phone] Lien [place] Screening Gene-2 Georgie In Womens Cervical Pap 7-201 Lilli. Health PA, Smear 6 700 PO Box Medical 1522, [place] [address] [place], [place], 120, [id number], [place], [place], tel:[phone] , [place]. tel: [phone] Lien [place] Feb-0 Georgie In Womens 1-201 Lilli. Health PA, 0 700 PO Box Medical 1522, [place] [address] [place], [place], 120, [id number], [place], [facility], tel:+ [phone] , . tel:[phone] Family History Family Member Diagnosis Age At [...] [place] Medicaid MC [id number] [place] Medicaid MC [id number] [place] - Medicaid MC [id number] Social History Type Description Quantity Date Captured Alcohol Use Details No Caffeine Use Details Unknown Tobacco Use Status Smoking Status Former smoker Vital Signs Date / Height Weight BMI Pulse Blood Temperature Respiratory Body Head BMI Time: Rate Pressure Rate Surface Circumference percentile Area 32.8 -2016 7 2:45 kg/m PM eter (2) 169.90 28.7 117/70 -2017 lbs 1 mm[Hg] 2:52 kg/m PM eter (2) Chief Complaint And [...] Complete OB Ultrasound > 14 Ordered Weeks ([id number]) Future Order: Radiology Order Transvaginal Pelvic Ultrasound Ordered ([id number]) Future Order: Lab Order Pap Smear With [...]
--- OUTSIDE RECORDS SUMMARY | 2017-09-27 05:57 | External Medical Summary | Continuity of Care Document ---
:1990 Author Organization [facility] Address [address] [place], [place] [id number] Phone Care Team Providers Name Role Phone [...] second trimester 18 weeks gestation of - Irregular Menses [...] abdominal pain - Previous Low Transverse - Matern care for oth or susp poor fetl - gr, 2nd tri, unsp 18 weeks gestation of - Active Procedures Procedure Date OB Visit No [...] C-SectionEncount 7 700 PO Box er for [facility] Medical 1522, of [facility] , Mikel Lopez, second 120, [id number], [email or web address] [place], [place] weeks gestation [place], tel:[phone] , [place]. tel: [phone] [facility] Previous Low Angel-0 Georgie In Womens Ultrasound Transverse 6-201 Lilli. Blanca ZENG C-SectionMatern 7 700 PO Box care for oth or Medical 1522, susp poor fetl [place] [facility], [facility], tri, Mikel Lopez, [id number] weeks 120, [id number], gestation of [place], tel:[phone] , [place]. tel:[phone] [facility] Previous Low Dawson-2 Georgie In Womens Transverse 2-201 Lilli. Blanca ZENG C-SectionEncount 7 700 PO Box er for [facility] Medical 1522, of [facility], , Mikel Lopez, second 120, [id number], [email or web address] [place], [place] weeks [place], tel:[phone] , [place]. tel:[phone] [facility] Previous Low May-2 Georgie In Womens Transverse 4-201 Lilli. Blanca ZENG C-SectionEncount 7 700 PO Box er for [facility] Medical 1522, of [facility], , first Mikel Lopez, [email or web address] 120, [id number], weeks gestation [place], [place], tel:[phone] , [place]. tel:[phone] [facility] Previous Low Apr-2 Georgie In Womens Transverse 6-201 Lilli. [facility], C-SectionPap 7 700 PO Box Smear Screening, Medical 1522, [facility], for suprvsn of Mikel Lopez, normal 120, , , first [place], trimester8 weeks [place], tel:[phone] , [place]. tel: [phone] [facility] Irregular Menses Apr-1 Georgie In Womens 7-201 Lilli. [facility], 7 700 PO Box Medical [address], [address] [place], [place], 120, [id number], [place], tel:[phone] , [place]. tel: [phone] [facility] Primary Feb-0 Mccoy In Womens dysmenorrhea 6-201 [facility], 7 700 PO [facility] [address], [address] [place], Mikel RAMACHANDRAN, 120, [id number], [place], tel:[phone] , [place]. tel: [phone] [facility] Unspecified Feb-0 Mccoy In Womens Ultrasound abdominal pain 6-201 [facility], 7 700 PO [facility] 15[address], [address] [place], [place], 120, [id number], [place], tel:[phone] , [place]. tel: [phone] [facility] Unspecified Feb-0 Mccoy In Womens abdominal pain 2-201 [facility], 7 700 PO [facility] [address], [address] [place], [place], 120, [id number], [place], tel:[phone] , [place]. tel: [phone] [facility] Jun- Debra In Womens Follow-Up, 0-201 Jahaira. [facility], Routine 6 700 PO Box Medical 15[address], [address] [place], [place], 120, [id number], [place], tel:[phone] , [place]. tel: [phone] [facility] May- Georgie In Womens Follow-Up, 4-201 Lilli. [facility], Routine 6 700 PO Box Medical [address], [address] [place], [facility] [place], 120, [id number], [place], tel:[phone] , [place]. tel: [phone] Lien [place] March- Georgie Referring In Womens 8-201 Lilli. Provider: Blanca ZENG, 6 700 Lilli PO Box Medical Georgie L, [address], [address], [facility] [place], 120, [place] [id number], [place], [facility] 120, [place], [place], tel:[phone] [place], , . [id number]. tel: tel: [phone] Lien [place] Dec-1 Georgie Referring In Womens 0-201 Lilli. Provider: Blanca ZENG, 6 700 Lilli PO Box Medical Georgie L, [address], [address], [facility], 120, [place] [id number], [place] [facility] 120, [place], [place], tel:[phone] [place], , [place]. [id number]. tel: tel: [phone] Lien [place] Screening Nov-2 Georgie In Womens Cervical Pap 7-201 Lilli. [facility], Smear 6 700 [facility] 15[address], [address] [place], [facility] [place], 120, [id number], [facility] [place], tel:[phone] , [place]. tel: [phone] Lien [place] Fe-0 Georgie In Womens 1-201 Lilli. Blanca ZENG, 0 700 Box Medical [address], [address], [facility] [place], 120, [id number], [place], tel:[phone] , [place]. tel: [phone] Family History Family Member Diagnosis Age At [...] [employer] [place] [id number] [employer] [place] MC [id number] [employer] [place] - Medicaid [place] [id number] Social History Type Description Quantity Date Captured Alcohol Use Details No Caffeine Use Details Unknown Tobacco Use Status Smoking Status Former smoker Vital Signs Date / Height Weight BMI Pulse Blood Temperature Respiratory Body Head BMI Time: Rate Pressure Rate Surface Circumference percentile Area 190.20 32.1 97/55 -2017 lbs 4 mm[Hg] 4:01 kg/m PM eter (2) 190.20 32.1 -2017 lbs 4 3:59 kg/m PM eter (2) 31.8 -2017 5 3:56 kg/m PM eter (2) Chief Complaint And Reason For Visit Unknown Chief Complaint And Reason For Visit Reason For Referral Reason For Referral Unknown Plan Of Care Date Type Action Status Goal Lifestyle education regarding completed diet Goal Lifestyle education regarding completed diet Appointment Hilary To BOOKED Future Order: Lab Order Pap Smear With HPV Reflex If Ordered ASCUS ([id number]) Future Order: Radiology Order Transvaginal Pelvic Ultrasound Ordered ([id number]) Future Order: Radiology Order Complete OB Ultrasound > 14 Ordered Weeks ([id number]) Date Type Problem Goal Intervention Status Start [...]
[2017-09-27] MEDS ORDERED: CEFAZOLIN 1 G INJECTION IVP ONE (06:03)
[2017-09-27] MEDS ORDERED: NOZIN NASAL SWAB NAS ONE (06:03)
[2017-09-27] MEDS ORDERED: FAMOTIDINE PB 20 MG/50 ML BAG IV ONE (06:03)
[2017-09-27] MEDS ORDERED: CITRIC ACID/SODIUM CITRATE 30ml PO ONE (06:03)
[2017-09-27] MEDS: LR 1,000 ML IV SCH ×2 (06:31→07:24)
[2017-09-27 06:49] VITALS: BMI 35.9
[2017-09-27] MEDS ORDERED: CEFAZOLIN PREMIX (MC ONLY) 2 GM/50 ML BAG IV ONE (07:26)
--- NOTE | 2017-09-27 07:43 | Anesthesia Preoperative Report ---
Anesthesia Epidural/Spinal Rec - Date and Time Date: 09/27/17 Procedure: Plan: Spinal - Vital Signs Vital Signs: Temperature 98.0 F 09/27/17 06:42 Pulse Rate 88 09/27/17 06:42 Respiratory Rate 16 09/27/17 06:42 Blood Pressure 131/63 09/27/17 06:42 Pulse Oximetry 98 09/27/17 06:42 /Para: P:2 - Medictaions & Allergies Inpatient Medications: Current Medications Lactated Ringer's (Lactated Ringers) 1,000 mls @ 1,000 mls/hr IV .Q1H [facility] Last Admin: 09/27/17 07:24 Dose: 1,000 mls/hr Cefazolin Sodium/Dextrose (Kefzol Premix ( Only)) 2 gm in 50 mls @ 100 mls/ hr IV O ONE Stop: 09/27/17 07:55 Last Admin: 09/27/17 07:27 Dose: 100 mls/hr Isopropyl Alcohol (Nozin Nasal Swab) 1 each ODALYS 0600,1400,2200 [facility] Allergies/Adverse Reactions: Allergies Allergy/AdvReac Type Severity Reaction Status Date / Time No Known Drug Allergies Allergy Mild Verified 10/08/16 11:44 - Home Medications Home Medications: Home Medications Medication Instructions Recorded Confirmed Type Vit No.130/Iron/Folic 1 tab PO DAILY #0 tab 04/30/16 09/27/17 History [ Tablet] - Medical History Respiratory: DENIES: Asthma, Bronchitis, Chronic Obstructive Pulmonary Disease (COPD), Dyspnea, Orthopnea, Pulmonary Embolism, Pneumonia, Upper Respiratory Infection, Pulmonary Edema, Sleep Apnea, Tuberculosis, Other Cardiovascular: DENIES: Abnormal EKG, Angina, Arrhythmia, Congestive Heart Failure, Coronary Artery Disease, Heart Murmur, Hypertension, Hypotension, High Cholesterol, Myocardial Infarction, Rheumatic Fever, Valvular Heart Disease, Other Gastrointestional: DENIES: Obstructive Bowel, Hepatitis, Cirrhosis, Nausea or Vomiting Present, Gastroesophageal Reflux Disease, Gastrointestinal Bleeding, Hiatal Hernia, Ulcer , Morbid Obesity, Other Neuro/Musculoskeletal: Reports: Depression Other History: Reports: Anesthesia Reactions, Now Anesthesia Reactions: nausea and vomiting - Surgical History Reproductive Surgery/Treatment: Reports: Section - Social History Smoking Status: Former smoker (smoked for 4 years. quit 3 years ago) Substance Use Type: does not use - Pertinent Findings Lab Data: CBC and BMP 09/27/17 06:19 EKG Rhythm: Normal Sinus Rhythm - Physical Exam Respiratory Exam: lungs clear, bilateral breath sounds equal Cardiovascular Exam: regular rate and rhythm, no murmur - Airway Assessment Mallampati Score: I TMD: 3 Fingerbreadths Neck Extension: good Overall Assessment: may be difficult intubation - ASA ASA Score: 2 - Discussion Discussion: Discussed risks/options/alternatives of anesthesia and questions answered. Patient consents. Nursing pain assessment noted. Anesthesia Discussion: spouse Attestation Statement: Prior to the delivery of any anesthetic medication, I examined the patient, developed the plan, obtained the patient's consent and discussed the risk and benefits of the procedure with the patient/guardian.
[2017-09-27] MEDS ORDERED: FentaNYL 100 MCG/2 ML INJECTION ONE (08:06)
[2017-09-27] MEDS ORDERED: MORPHINE SULFATE PF 5mg/10ml INJ (Duramorph) ONE (08:06)
[2017-09-27] MEDS ORDERED: OXYTOCIN BOLUS BAG 30 UNIT/500 ML ML IV SCH (09:00)
[2017-09-27] MEDS ORDERED: ONDANSETRON 4 MG/2 ML INJECTION IVP PRN (09:29)
[2017-09-27] MEDS ORDERED: NALOXONE 2 MG/2 ML INJECTION PFS IVP PRN (09:29)
[2017-09-27] MEDS ORDERED: NALBUPHINE 10 MG/ML INJECTION IVP PRN (09:29)
[2017-09-27] MEDS ORDERED: HYDROCODONE/APAP 5mg/325mg TABLET PO PRN (09:41)
[2017-09-27] MEDS ORDERED: HYDROCORTISONE 2.5% CREAM 30gm RECTALLY PRN ×3 (09:41→12:00)
[2017-09-27] MEDS ORDERED: MAG-AL + SIM ORAL LIQUID 30ml PO PRN (09:41)
[2017-09-27] MEDS ORDERED: MEASLES-MUMPS-RUBELLA VACCINE 0.5ml INJECTION SQ ONE (09:41)
[2017-09-27] MEDS ORDERED: DiphenhydrAMINE 25 MG CAPSULE PO PRN ×3 (09:41→12:00)
[2017-09-27] MEDS ORDERED: IBUPROFEN 800 MG TABLET PO PRN (09:41)
[2017-09-27] MEDS ORDERED: OXYTOCIN DRIP 30 UNIT/500 ML ML IV SCH ×3 (09:41→12:00)
[2017-09-27] MEDS ORDERED: ACETAMINOPHEN 500 MG TABLET PO PRN ×3 (09:41→12:00)
[2017-09-27] MEDS ORDERED: CALCIUM CARBONATE Chewable 500mg TABLET PO PRN ×3 (09:41→12:00)
[2017-09-27] MEDS: D5LR 1,000 ML IV SCH ×2 (09:45→21:42)
[2017-09-27] MEDS ORDERED: SALINE FLUSH 10ml SYRINGE IV PRN (10:46)
[2017-09-27] MEDS ORDERED: SIMETHICONE 80 MG CHEWABLE TABLET PO PRN ×2 (10:46→12:00)
[2017-09-27] MEDS: IBUPROFEN 800 MG TABLET PO PRN ×2 (10:56→20:09)
[2017-09-27] MEDS ORDERED: D5LR 1,000 ML IV SCH (12:00)
[2017-09-27] MEDS ORDERED: IBUPROFEN 800 MG TABLET PO SCH (12:00)
[2017-09-27] MEDS ORDERED: METOCLOPRAMIDE 10mg/2ml INJECTION IVP PRN (12:00)
[2017-09-27] MEDS: HYDROCODONE/APAP 5mg/325mg TABLET PO PRN ×2 (12:08→20:09)
--- NOTE | 2017-09-27 12:52 | Operative Note ---
DATE OF PROCEDURE 09/27/2017 PREOPERATIVE DIAGNOSIS Term . Previous x 2. POSTOPERATIVE DIAGNOSIS Term . Previous x 2. PROCEDURE Repeat low transverse section. SURGEON Lilli Jacques MD COUNTER PERSON Jaret Mccall, [facility] [employer] ANESTHESIA Combined spinal/epidural. FLOOR COVERINGS SALESPERSON Bert Prather CRNA EBL 300 ml DESCRIPTION OF PROCEDURE Ms. To was brought to the OR and given regional analgesia to good effect. She was then placed on the OR table in a comfortable supine position with left lateral displacement. A Lane catheter was placed to dependent drain. The abdomen was prepped and draped in the usual sterile fashion. A Pfannenstiel skin incision was made with a sharp knife. This was carried down to fascia. Fascia was incised transversely. This was tented up. Fascia was then bluntly and sharply dissected free of rectus muscles. Rectus muscles were bluntly divided. The peritoneum was tented up and sharply entered. This was extended vertically. The bladder blade was inserted. The vesicouterine fold of peritoneum was tented up and incised transversely. The bladder blade was reinserted to protect the bladder. A low transverse uterine incision was made. There was copious clear amniotic fluid. The baby was delivered in the vertex presentation. As soon as the head was out, baby was bulb suctioned on the abdomen. After delivery of the body, the baby was further bulb suctioned. Cord was doubly clamped and cut and the baby was given to Dr. Gramajo for care. This is a liveborn male, weighing 6 pounds, 14.7 ounces with Apgars of 8/9/9. The placenta was then expressed, intact, with a normal configuration and a normal-appearing 3-vessel cord. Uterine cavity was swept clear of membranes and the uterus exteriorized. The myometrial incision was then reapproximated with a running-locking 0 Monocryl. We inspected carefully for hemostasis. This was under good control. Uterus, tubes and ovaries were noted to be grossly normal and they were returned to the abdominal cavity. We removed gross blood clots and inspected again for hemostasis. The peritoneum was then reapproximated with a running non-locking 2-0 Vicryl. Again, we inspected for hemostasis. Fascia was reapproximated with a running non-locking 0 Vicryl. Again, at this layer, we inspected carefully for hemostasis. Skin edges were reapproximated with a subcuticular style 3-0 Covidien suture. The wound was then dressed with Steri-Strips and a sterile dressing. Counts were correct postoperatively x 2. The urine remained clear and free flowing throughout the procedure. The mother was then transferred to recovery in stable condition. ANGELITA
[2017-09-27] MEDS ORDERED: SIMETHICONE 80 MG CHEWABLE TABLET PO SCH (13:00)
[2017-09-27] MEDS ORDERED: NOZIN NASAL SWAB NAS SCH (14:00)
[2017-09-27] MEDS: SIMETHICONE 80 MG CHEWABLE TABLET PO SCH ×3 (14:37→22:21)
--- NOTE | 2017-09-27 18:30 | Anesthesia Postoperative Note ---
- Date and Time Date: 09/27/17 Time: 18:25 - Status Patient Participated in Evaluation: Patient Participated in Person Vital Signs: Temperature 97.8 F 09/27/17 16:00 Pulse Rate 72 09/27/17 16:00 Respiratory Rate 16 09/27/17 16:00 Blood Pressure 116/66 09/27/17 16:00 Pulse Oximetry 100 09/27/17 16:00 Respiratory Function: Airway Patent, Regular Respirations Cardiovascular Function: Regular Pulse Mental Status: Alert and Oriented Pain Intensity: 2 Hydration: Taking PO Fluids Complications During Recover: None Apparent Post Anesthesia Care Notes: moves lower extremeties without problems. - Follow-Up Instructions Instructions: Per Surgeon
[2017-09-28] MEDS: IBUPROFEN 800 MG TABLET PO PRN ×2 (07:04→15:11)
[2017-09-28] MEDS: HYDROCODONE/APAP 5mg/325mg TABLET PO PRN ×3 (07:05→16:11)
[2017-09-28] MEDS ORDERED: DOCUSATE CALCIUM 240 MG CAPSULE PO SCH ×3 (09:00)
[2017-09-28] MEDS ORDERED: PRENATAL VITAMIN TABLET PO SCH (09:00)
[2017-09-28] MEDS: SIMETHICONE 80 MG CHEWABLE TABLET PO SCH (09:11)
--- NOTE | 2017-09-28 12:24 | OB/GYN Progress Note ---
OB-PP Progress Note - General PPD1 Maternal Group B Strep: Negative Maternal blood type: O+ Maternal Rubella Status: Equivical - Subjective Date: 09/28/17 Lochia: Minimal Pain: controlled Voiding: voiding Nausea or Vomiting Present: No - Objective Vital Signs: Last Vital Signs Temp 97.9 F 09/28/17 09:00 Pulse 81 09/28/17 09:00 Resp 16 09/28/17 09:00 BP 105/68 09/28/17 09:00 Pulse Ox 97 09/28/17 09:00 Urine Output: good General: alert and oriented Abdomen: fundus firm, non-tender Incision: normal, clean, no erythema Extremities: non-tender Laboratory: Laboratory Results - last 24 hr 09/27/17 14:55 WBC 19.5 H D RBC 4.24 Hgb 13.0 Hct 38.5 MCV 90.8 MCH 30.7 MCHC 33.8 RDW Std Deviation 41.8 Plt Count 305 MPV 10.1 - Assessment Assessment: SP, Repeat C/S - Plan Plan: routine care Expected date of discharge: 09/29/17
[2017-09-29 02:56] VITALS: O2SAT 99
[2017-09-29] MEDS: HYDROCODONE/APAP 5mg/325mg TABLET PO PRN (06:34)
[2017-09-29] MEDS: IBUPROFEN 800 MG TABLET PO PRN (06:35)
[2017-09-29 07:33] VITALS: BP 123/71; PULSE 89; RESP 18; TEMP 97.7
== END 2017-09-29 12:50 | disposition home or self-care (01) | DRG 766 ==
LOC: MC 05:45
PROVIDERS: ADMIT Obstetrics & Gynecology; ATTEND Obstetrics & Gynecology